=== PATIENT | female | born 1995 | race Caucasian/White ===

== ENCOUNTER 2017-01-12 18:01 | Emergency (ER) | payer OTHER ==
[~2017-01-12] VITALS: Ht 157.5 cm; Wt 78.8 kg
[~2017-01-12 18:01] MED LIST: ALBUTEROL17 GM IH
[2017-01-12 19:11] LABS: HEMATOCRIT 41.9 % (36.0-46.0); MCH 29.7 PG (29.0-34.0); MCHC 33.2 G/DL (30.0-36.0); MCV 89.5 FL (83-99); MEAN PLAT.VOLUME 10.5 uM^3 (9.5-12.4); PLATELET COUNT 242 K/uL (156-360); RBC DIS.WIDTH-CV 12.9 % (11.8-14.6); RBC DIS.WIDTH-SD 42.3 % (39-53); RED BLOOD COUNT 4.68 M/uL (3.80-5.20); WHITE BLOOD COUNT 11.8 K/uL (4.1-10.2)
[2017-01-12 19:26] LABS: CHLORIDE 106 mEq/L (99-109); POTASSIUM 3.8 mEq/L (3.7-5.4); SODIUM 139 mEq/L (136-147)
[2017-01-12 19:27] LABS: GLUCOSE 126 mg/dL (70-99)
[2017-01-12 19:29] LABS: ANION GAP 9 MEQ/L (2-14)
[2017-01-12 19:31] LABS: GFR ESTIMATE (CALCULATED) > 59 mL/min/
[2017-01-12 19:32] LABS: UREA NITROGEN (BUN) 9 mg/dL (9-23)
[2017-01-12 19:58] LABS: EOSINOPHIL (%) 1.1 % (0-5); EOSINOPHIL COUNT 0.1 K/uL (0-0.3); IMMATURE GRANULOCYTE (%) 0.3 % (0.0-0.7); INSTRUMENT ABS NEUTROPHIL CT 7.7 K/uL; LYMPHOCYTE COUNT 2.9 K/uL (1.0-2.8); MONOCYTE (%) 7.5 % (3-12); MONOCYTE COUNT 0.9 K/uL (0-0.8); NEUTROPHIL (%) 65.9 % (45-76); NEUTROPHIL COUNT 7.7 K/uL (1.8-6.4)
[2017-01-12 20:03] LABS: TOTAL BILIRUBIN 0.5 mg/dL (0.0-1.0)
[2017-01-12 20:04] LABS: ALKALINE PHOSPHATASE 75 IU/L (3-129)
[2017-01-12 20:07] LABS: DIRECT BILIRUBIN 0.2 mg/dL (0.0-0.3)
[2017-01-12 20:26] LABS: INTERNAL CONTROL VALID? YES; MONOSPOT (MONONUCLEOSIS SEROL) NEGATIVE
[2017-01-12 20:26] LABS: ADD MIUA? YES; BILIRUBIN NEGATIVE; BLOOD SMALL; COLOR YELLOW ((YELLOW)); GLUCOSE (STRIP) NEGATIVE; KETONES NEGATIVE; LEUKOCYTES TRACE; NITRITE NEGATIVE; PROTEIN (STRIP) NEGATIVE; UROBILINOGEN 0.2 MG/DL (0.2-1.0)
[2017-01-12 20:29] LABS: BACTERIA RARE /HPF; EPITHELIAL CELLS 1+ /HPF; MUCUS NONE SEEN /LPF; RED BLOOD CELLS 0-5 /HPF (0-5); UNCLASSIFIED CRYSTALS 1+ /HPF; WHITE BLOOD CELLS 0-5 /HPF (0-5)
[2017-01-12] MEDS ORDERED: FIORICET 50-301 EAC1 PO (22:16)
[2017-01-12] MEDS ORDERED: VALIUM5 MG PO (22:16)
[2017-01-12] MEDS ORDERED: MOTRIN800 MG PO (22:16)
[2017-01-12 22:58] VITALS: BP 113/56
[2017-01-13 08:34] LABS: ANTI-EPSTEIN-BARR NUCLEAR AG POSITIVE; ANTI-EPSTEIN-BARR VCA IGG POSITIVE; ANTI-EPSTEIN-BARR VCA IGM NEGATIVE
== END 2017-01-12 23:01 | disposition home or self-care (01) ==
LOC: EME 18:01
PROVIDERS: Physician Assistant
DX: J02.9 Acute pharyngitis, unspecified (principal); G44.209 Tension-type headache, unspecified, not intractable; M62.838 Other muscle spasm
CPT/HCPCS: 80048; 80076; 81003; 85025; 85027; 86308; 86664; 86665; 87651 90; 99281; 99285

== ENCOUNTER 2017-02-02 12:24 | Emergency (ER) | payer OTHER ==
[~2017-02-02] VITALS: Ht 170.2 cm; Wt 78.6 kg
[~2017-02-02 12:24] MED LIST changes: +FIORICET 50-301 EAC1 PO; +MOTRIN800 MG PO; +VALIUM5 MG PO
[2017-02-02 14:14] LABS: EOSINOPHIL (%) 0.9 % (0-5); EOSINOPHIL COUNT 0.1 K/uL (0-0.3); HEMATOCRIT 37.5 % (36.0-46.0); IMMATURE GRANULOCYTE (%) 0.4 % (0.0-0.7); INSTRUMENT ABS NEUTROPHIL CT 8.3 K/uL; LYMPHOCYTE COUNT 1.4 K/uL (1.0-2.8); MCHC 33.3 G/DL (30.0-36.0); MCV 90.1 FL (83-99); MEAN PLAT.VOLUME 10.3 uM^3 (9.5-12.4); MONOCYTE (%) 6.5 % (3-12); MONOCYTE COUNT 0.7 K/uL (0-0.8); NEUTROPHIL (%) 78.7 % (45-76); NEUTROPHIL COUNT 8.3 K/uL (1.8-6.4); PLATELET COUNT 199 K/uL (156-360); RBC DIS.WIDTH-CV 12.8 % (11.8-14.6); RBC DIS.WIDTH-SD 42.2 % (39-53); RED BLOOD COUNT 4.16 M/uL (3.80-5.20); WHITE BLOOD COUNT 10.6 K/uL (4.1-10.2)
[2017-02-02 14:23] LABS: CHLORIDE 105 mEq/L (99-109); POTASSIUM 4.2 mEq/L (3.7-5.4); SODIUM 138 mEq/L (136-147)
[2017-02-02 14:25] LABS: GLUCOSE 107 mg/dL (70-99)
[2017-02-02 14:26] LABS: ANION GAP 7 MEQ/L (2-14)
[2017-02-02 14:29] LABS: GFR ESTIMATE (CALCULATED) > 59 mL/min/
[2017-02-02 14:30] LABS: UREA NITROGEN (BUN) 8 mg/dL (9-23)
[2017-02-02] MEDS ORDERED: PEPCID20 MG PO (15:47)
[2017-02-02] MEDS ORDERED: BENADRYL25 MG PO (15:47)
[2017-02-02] MEDS ORDERED: PREDNISONE5 MG PO (15:47)
[2017-02-02] MEDS ORDERED: AUGMENTIN875 MG PO (15:51)
[2017-02-02 16:24] VITALS: BP 109/66
== END 2017-02-02 16:24 | disposition home or self-care (01) ==
LOC: EME 12:24
DX: J02.9 Acute pharyngitis, unspecified (principal); R05 Cough; M54.2 Cervicalgia; R51 Headache; H92.09 Otalgia, unspecified ear; R11.0 Nausea; T36.95XA Adverse effect of unspecified systemic antibiotic, initial encounter; J45.909 Unspecified asthma, uncomplicated
CPT/HCPCS: 80048; 81003; 83605; 85025; 99281; 99284; J7512